=== PATIENT | female | born 1985 | race Caucasian/White ===

== ENCOUNTER 2017-03-07 21:11 | Emergency (ER) | payer MEDICAID, OTHER ==
[~2017-03-07] VITALS: Ht 165.1 cm; Wt 90.9 kg
[~2017-03-07 21:11] MED LIST: LAMO100 PO; PALI6 PO
[2017-03-07 21:47] LABS: BASOPHILS % (AUTO) 0.3 % (0.0-2.0); EOSINOPHILS % (AUTO) 1.5 % (1.0-6.0); HEMATOCRIT 39.2 % (36-46); LYMPHOCYTES # (AUTO) 2.5 K/uL (1.0-4.8); MEAN CORPUSCULAR HEMOGLOBIN 29.5 pg (26.0-34.0); MEAN CORPUSCULAR HGB CONC 33.2 G/dL (31.0-37.0); MEAN CORPUSCULAR VOLUME 89 fL (80-100); MONOCYTES # (AUTO) 1.1 K/uL (0.1-1.0); MONOCYTES % (AUTO) 10.3 % (2.0-9.0); NEUTROPHILS # (AUTO) 6.7 K/uL (1.8-7.7); NEUTROPHILS % (AUTO) 63.9 % (40.0-70.0); PLATELET COUNT (AUTO) 303 K/uL (150-450); RED BLOOD CELL COUNT(AUTO) 4.41 MIL/uL (4.00-5.20); RED CELL DISTRIBUTION WIDTH 13.4 % (11.5-14.5); WHITE BLOOD COUNT (AUTO) 10.5 K/uL (4.5-11.0)
[2017-03-07 21:52] VITALS: BP 138/74
[2017-03-07 21:58] LABS: ANION GAP 9 mmol/L (8-16); CALCIUM, TOTAL 8.8 mg/dL (8.8-10.5); CARBON DIOXIDE 27 mmol/L (22-29); CHLORIDE 100 mmol/L (98-107); GLOMERULAR FILTR. RATE CALC > 60 mL/min (>60); POTASSIUM 3.4 mmol/L (3.5-5.1); SODIUM SERUM 136 mmol/L (136-145); UREA NITROGEN, BLOOD 22 mg/dL (7-18)
[2017-03-07 22:04] LABS: ALANINE AMINOTRANSFERASE 84 U/L (12-78); ALBUMIN 4.2 g/dL (3.4-5.0); ASPARTATE AMINOTRANSFERASE 43 U/L (15-37); BILIRUBIN,TOTAL 0.9 mg/dL (0.1-1.0); TOTAL PROTEIN, SERUM 7.8 g/dL (6.4-8.2)
== END 2017-03-07 22:31 | disposition left against medical advice (07) ==
LOC: EMS 21:13
DX: Z00.8 Encounter for other general examination (principal); R68.84 Jaw pain; Y04.0XXA Assault by unarmed brawl or fight, initial encounter; Y93.89 Activity, other specified; Y92.89 Other specified places as the place of occurrence of the external cause; Y99.8 Other external cause status; Z53.21 Procedure and treatment not carried out due to patient leaving prior to being seen by health care provider

== ENCOUNTER 2017-05-01 18:53 | Emergency (ER) | payer OTHER ==
[~2017-05-01] VITALS: Ht 170.2 cm; Wt 90.9 kg
[2017-05-01] MEDS ORDERED: LORazepam 2 MG/ML VIAL IM ONE (19:30)
[2017-05-01] MEDS ORDERED: DiphenhydrAMINE HCL 50 MG/ML VIAL IM ONE (19:30)
[2017-05-01] MEDS ORDERED: HALOPERIDOL LACTATE 5 MG/ML VIAL IM ONE (19:30)
[2017-05-01 21:43] LABS: BASOPHILS % (AUTO) 0.2 % (0.0-2.0); EOSINOPHILS % (AUTO) 0.3 % (1.0-6.0); HEMATOCRIT 34.2 % (36-46); HEMOGLOBIN 11.6 g/dL (12.0-16.0); LYMPHOCYTES # (AUTO) 3.2 K/uL (1.0-4.8); LYMPHOCYTES % (AUTO) 24.9 % (22.0-44.0); MEAN CORPUSCULAR HEMOGLOBIN 29.4 pg (26.0-34.0); MEAN CORPUSCULAR HGB CONC 33.9 G/dL (31.0-37.0); MEAN CORPUSCULAR VOLUME 87 fL (80-100); MONOCYTES # (AUTO) 1.1 K/uL (0.1-1.0); MONOCYTES % (AUTO) 8.4 % (2.0-9.0); NEUTROPHILS # (AUTO) 8.6 K/uL (1.8-7.7); NEUTROPHILS % (AUTO) 66.2 % (40.0-70.0); PLATELET COUNT (AUTO) 339 K/uL (150-450); RED BLOOD CELL COUNT(AUTO) 3.94 MIL/uL (4.00-5.20); RED CELL DISTRIBUTION WIDTH 13.2 % (11.5-14.5)
[2017-05-01 21:45] LABS: ANION GAP 12 mmol/L (8-16); CALCIUM, TOTAL 8.8 mg/dL (8.8-10.5); CARBON DIOXIDE 25 mmol/L (22-29); CHLORIDE 103 mmol/L (98-107); CREATININE 0.86 mg/dL (0.60-1.30); GLOMERULAR FILTR. RATE CALC > 60 mL/min (>60); POTASSIUM 3.2 mmol/L (3.5-5.1); SODIUM SERUM 140 mmol/L (136-145); UREA NITROGEN, BLOOD 15 mg/dL (7-18)
[2017-05-01] MEDS ORDERED: DIAZEPAM 5 MG/ML 2 ML SYRINGE IM ONE (21:45)
[2017-05-01 21:50] LABS: ALANINE AMINOTRANSFERASE 63 U/L (12-78); ALBUMIN 3.7 g/dL (3.4-5.0); ASPARTATE AMINOTRANSFERASE 32 U/L (15-37); BILIRUBIN,TOTAL 0.6 mg/dL (0.1-1.0); TOTAL PROTEIN, SERUM 7.5 g/dL (6.4-8.2)
[2017-05-01] MEDS ORDERED: POTASSIUM CHLORIDE 10% 40 MEQ/30 ML LIQUID UDCUP PO ONE (23:30)
[2017-05-02 00:43] VITALS: BP 126/71
== END 2017-05-02 00:55 | disposition home or self-care (01) ==
LOC: EMS 18:55
DX: S00.91XA Abrasion of unspecified part of head, initial encounter (principal); S60.512A Abrasion of left hand, initial encounter; F24 Shared psychotic disorder; F15.10 Other stimulant abuse, uncomplicated; F17.200 Nicotine dependence, unspecified, uncomplicated; F31.9 Bipolar disorder, unspecified; F20.9 Schizophrenia, unspecified; W01.0XXA Fall on same level from slipping, tripping and stumbling without subsequent striking against object, initial encounter; Y93.89 Activity, other specified; Y92.89 Other specified places as the place of occurrence of the external cause; Y99.8 Other external cause status
CPT/HCPCS: 36415; 80053; 80307; 85025; 96372; 99291; G0480; J1200; J1630; J1885; J2060

== ENCOUNTER 2017-05-05 00:45 | Emergency (ER) | payer OTHER ==
[~2017-05-05] VITALS: Ht 167.6 cm; Wt 94.0 kg
[2017-05-05 00:49] VITALS: BP 142/82
[2017-05-05] MEDS ORDERED: ARIP300S3 IM (02:55)
== END 2017-05-05 01:22 | disposition left against medical advice (07) ==
LOC: EMS 00:45
DX: Z00.8 Encounter for other general examination (principal); F31.9 Bipolar disorder, unspecified; F20.9 Schizophrenia, unspecified; F19.90 Other psychoactive substance use, unspecified, uncomplicated; F17.210 Nicotine dependence, cigarettes, uncomplicated; Z53.21 Procedure and treatment not carried out due to patient leaving prior to being seen by health care provider

== ENCOUNTER 2017-05-05 01:51 | Emergency (ER) | payer OTHER ==
[~2017-05-05] VITALS: Ht 157.5 cm; Wt 94.1 kg
[2017-05-05] MEDS ORDERED: ARIP300S3 IM (02:55)
[2017-05-05] MEDS ORDERED: LORazepam 2 MG TABLET PO ONE (04:15)
[2017-05-05 04:48] VITALS: BP 119/63
== END 2017-05-05 04:52 | disposition home or self-care (01) ==
LOC: EMS 01:52
DX: F25.9 Schizoaffective disorder, unspecified (principal); F31.9 Bipolar disorder, unspecified; F15.90 Other stimulant use, unspecified, uncomplicated
CPT/HCPCS: 99284

== ENCOUNTER 2017-06-22 07:41 | Inpatient (IN) | payer MEDICAID, OTHER ==
[~2017-06-22] VITALS: Ht 180.3 cm; Wt 93.2 kg
[~2017-06-22 07:41] MED LIST changes: +ARIP300S3 IM; -LAMO100 PO; -PALI6 PO
[2017-06-22 08:30] LABS: BASOPHILS # (AUTO) 0.04 K/uL (0.00-0.20); BASOPHILS % (AUTO) 0.3 % (0.0-2.0); EOSINOPHILS # (AUTO) 0.05 K/uL (0.00-0.70); HEMATOCRIT 37.6 % (36-46); HEMOGLOBIN 12.6 g/dL (12.0-16.0); LYMPHOCYTES # (AUTO) 2.6 K/uL (1.0-4.8); LYMPHOCYTES % (AUTO) 24.1 % (22.0-44.0); MEAN CORPUSCULAR HEMOGLOBIN 28.4 pg (26.0-34.0); MEAN CORPUSCULAR HGB CONC 33.4 G/dL (31.0-37.0); MEAN CORPUSCULAR VOLUME 85 fL (80-100); MONOCYTES # (AUTO) 1.1 K/uL (0.1-1.0); MONOCYTES % (AUTO) 10.1 % (2.0-9.0); NEUTROPHILS # (AUTO) 6.9 K/uL (1.8-7.7); PLATELET COUNT (AUTO) 298 K/uL (150-450); RED BLOOD CELL COUNT(AUTO) 4.43 MIL/uL (4.00-5.20); RED CELL DISTRIBUTION WIDTH 13.2 % (11.5-14.5); WHITE BLOOD COUNT (AUTO) 10.6 K/uL (4.5-11.0)
[2017-06-22 08:48] LABS: ANION GAP 5 mmol/L (8-16); CARBON DIOXIDE 29 mmol/L (22-29); CHLORIDE 102 mmol/L (98-107); CREATININE 0.68 mg/dL (0.60-1.30); GLOMERULAR FILTR. RATE CALC > 60 mL/min (>60); POTASSIUM 4.1 mmol/L (3.5-5.1); SODIUM SERUM 136 mmol/L (136-145); UREA NITROGEN, BLOOD 12 mg/dL (7-18)
[2017-06-22 08:54] LABS: ALANINE AMINOTRANSFERASE 65 U/L (12-78); ALBUMIN 3.9 g/dL (3.4-5.0); ASPARTATE AMINOTRANSFERASE 30 U/L (15-37); BILIRUBIN,TOTAL 0.3 mg/dL (0.1-1.0); TOTAL PROTEIN, SERUM 7.9 g/dL (6.4-8.2)
[2017-06-22] MEDS ORDERED: LORazepam 2 MG/ML VIAL IM ONE ×2 (09:00→12:15)
[2017-06-22] MEDS ORDERED: HALOPERIDOL LACTATE 5 MG/ML VIAL IM ONE (09:00)
[2017-06-22] MEDS ORDERED: DiphenhydrAMINE HCL 50 MG/ML VIAL IM ONE ×2 (09:00→12:15)
[2017-06-22] MEDS ORDERED: HYDROCORTISONE 1% 30 GM OINTMENT TP PRN (12:45)
[2017-06-22 13:18] VITALS: BP 140/91
[2017-06-22 16:34] VITALS: BP 126/78
[2017-06-23] MEDS: NICOTINE 21 MG/24 HOUR PATCH TD SCH (08:20)
[2017-06-23 08:43] VITALS: BP 124/74
[2017-06-23 08:44] LABS: CHOL/HDL RATIO 3.2 (3.9-5.7); THYROID STIMULATING HORMONE 0.94 uIU/mL (0.36-3.74)
[2017-06-23] MEDS ORDERED: ALBUTEROL SULFATE HFA 90 MCG/PUFF 8 GM INHALER IH PRN (09:00)
[2017-06-23] MEDS ORDERED: ONDANSETRON HCL 4 MG TABLET PO PRN (09:00)
[2017-06-23] MEDS ORDERED: CloNIDine HCL 0.1 MG TABLET PO PRN (09:00)
[2017-06-23] MEDS ORDERED: MAGNESIUM HYDROXIDE SUSPENSION 30 ML UDCUP PO PRN (09:00)
[2017-06-23] MEDS ORDERED: PETROLATUM,WHITE 71 GM JELLY TP PRN (09:00)
[2017-06-23] MEDS ORDERED: BENZOCAINE/MENTHOL LOZENGE MM PRN (09:00)
[2017-06-23] MEDS ORDERED: MAG HYDROX/AL HYDROX/SIMETH ES 30 ML SUSPENSION UDCUP PO PRN (09:00)
[2017-06-23] MEDS ORDERED: LOPERAMIDE HCL 2 MG CAPSULE PO PRN (09:00)
[2017-06-23] MEDS ORDERED: BACITRACIN 28.4 GM OINTMENT TP PRN (09:00)
[2017-06-23] MEDS ORDERED: ACETAMINOPHEN 325 MG TABLET PO PRN (09:00)
[2017-06-23] MEDS: LORazepam 2 MG TABLET PO PRN ×2 (09:26→20:13)
[2017-06-23] MEDS: OLANZapine 10 MG TABLET PO SCH ×2 (09:26→20:12)
[2017-06-23] MEDS: ZOLPIDEM TARTRATE 10 MG TABLET PO PRN (20:12)
[2017-06-23] MEDS ORDERED: LITHIUM CARBONATE 300 MG CAPSULE PO SCH (21:00)
[2017-06-24] MEDS: OLANZapine 10 MG TABLET PO SCH ×2 (08:10→20:55)
[2017-06-24] MEDS: NICOTINE 21 MG/24 HOUR PATCH TD SCH (08:11)
[2017-06-24] MEDS: IBUPROFEN 600 MG TABLET PO PRN (08:11)
[2017-06-24] MEDS: LITHIUM CARBONATE 600 MG CAPSULE PO SCH ×2 (14:54→16:42)
[2017-06-24 16:20] VITALS: BP 112/71
[2017-06-24] MEDS: LORazepam 2 MG TABLET PO PRN (16:42)
[2017-06-24] MEDS: ZOLPIDEM TARTRATE 10 MG TABLET PO PRN (20:53)
[2017-06-25 05:03] VITALS: BP 124/70
[2017-06-25] MEDS: IBUPROFEN 600 MG TABLET PO PRN (06:32)
[2017-06-25] MEDS: LORazepam 2 MG TABLET PO PRN ×2 (08:37→16:22)
[2017-06-25] MEDS: OLANZapine 10 MG TABLET PO SCH ×2 (08:38→20:50)
[2017-06-25] MEDS: LITHIUM CARBONATE 600 MG CAPSULE PO SCH ×3 (08:38→16:22)
[2017-06-25] MEDS: NICOTINE 21 MG/24 HOUR PATCH TD SCH (08:38)
[2017-06-25 16:20] VITALS: BP 121/75
[2017-06-25] MEDS: ZOLPIDEM TARTRATE 10 MG TABLET PO PRN (20:50)
[2017-06-26 08:28] VITALS: BP 120/77
[2017-06-26] MEDS: LITHIUM CARBONATE 600 MG CAPSULE PO SCH ×3 (09:37→16:24)
[2017-06-26] MEDS: OLANZapine 10 MG TABLET PO SCH ×2 (09:37→20:20)
[2017-06-26] MEDS: NICOTINE 21 MG/24 HOUR PATCH TD SCH (09:38)
[2017-06-26] MEDS: LORazepam 2 MG TABLET PO PRN ×2 (09:47→16:24)
[2017-06-26 16:23] VITALS: BP 125/79
[2017-06-26] MEDS: IBUPROFEN 600 MG TABLET PO PRN (16:24)
[2017-06-26] MEDS: ZOLPIDEM TARTRATE 10 MG TABLET PO PRN (20:20)
[2017-06-27 07:08] VITALS: BP 127/93
[2017-06-27] MEDS: NICOTINE 21 MG/24 HOUR PATCH TD SCH (09:11)
[2017-06-27] MEDS: OLANZapine 10 MG TABLET PO SCH ×2 (09:11→20:29)
[2017-06-27] MEDS: LITHIUM CARBONATE 600 MG CAPSULE PO SCH ×3 (09:11→16:14)
[2017-06-27] MEDS: LORazepam 2 MG TABLET PO PRN (16:14)
[2017-06-27 16:22] VITALS: BP 119/76
[2017-06-27] MEDS: ZOLPIDEM TARTRATE 10 MG TABLET PO PRN (20:29)
[2017-06-28 07:26] VITALS: BP 124/64
[2017-06-28 08:30] VITALS: BP 118/80
[2017-06-28] MEDS: NICOTINE 21 MG/24 HOUR PATCH TD SCH (09:25)
[2017-06-28] MEDS: LITHIUM CARBONATE 600 MG CAPSULE PO SCH ×3 (09:26→17:07)
[2017-06-28] MEDS: OLANZapine 10 MG TABLET PO SCH ×2 (09:26→20:36)
[2017-06-28] MEDS: LORazepam 2 MG TABLET PO PRN (15:58)
[2017-06-29 06:03] VITALS: BP 113/68
[2017-06-29 08:00] VITALS: BP 112/70
[2017-06-29] MEDS: OLANZapine 10 MG TABLET PO SCH ×2 (08:44→21:44)
[2017-06-29] MEDS: LITHIUM CARBONATE 600 MG CAPSULE PO SCH ×3 (08:44→17:58)
[2017-06-29] MEDS: NICOTINE 21 MG/24 HOUR PATCH TD SCH (08:45)
[2017-06-29] MEDS: LORazepam 2 MG TABLET PO PRN ×2 (11:37→17:58)
[2017-06-29 18:16] VITALS: BP 117/72
[2017-06-29] MEDS: ZOLPIDEM TARTRATE 10 MG TABLET PO PRN (21:44)
[2017-06-30 04:17] VITALS: BP 121/76
[2017-06-30 08:25] VITALS: BP 118/69
[2017-06-30] MEDS: NICOTINE 21 MG/24 HOUR PATCH TD SCH (09:26)
[2017-06-30] MEDS: OLANZapine 10 MG TABLET PO SCH ×2 (09:26→20:09)
[2017-06-30] MEDS: LITHIUM CARBONATE 600 MG CAPSULE PO SCH ×3 (09:26→16:32)
[2017-06-30] MEDS: IBUPROFEN 600 MG TABLET PO PRN (10:28)
[2017-06-30] MEDS ORDERED: INFLUENZA VIRUS VACCINE QVS 2017-18 (3YR+)/PF 60 MCG/0.5 ML SYRINGE IM ONE (11:00)
[2017-06-30] MEDS: LORazepam 2 MG TABLET PO PRN ×2 (11:01→16:33)
[2017-06-30 16:00] VITALS: BP 116/70
[2017-06-30] MEDS: ZOLPIDEM TARTRATE 10 MG TABLET PO PRN (20:09)
[2017-07-01 06:35] VITALS: BP 118/75
[2017-07-01 08:23] VITALS: BP 118/75
[2017-07-01] MEDS: OLANZapine 10 MG TABLET PO SCH ×2 (09:12→20:11)
[2017-07-01] MEDS: LITHIUM CARBONATE 600 MG CAPSULE PO SCH ×3 (09:12→16:17)
[2017-07-01] MEDS: NICOTINE 21 MG/24 HOUR PATCH TD SCH (09:13)
[2017-07-01] MEDS ORDERED: PALIPERIDONE PALMITATE 156 MG/ML SYRINGE IM SCH (12:00)
[2017-07-01 16:06] VITALS: BP 124/79
[2017-07-01] MEDS: LORazepam 2 MG TABLET PO PRN (16:17)
[2017-07-01] MEDS: ZOLPIDEM TARTRATE 10 MG TABLET PO PRN (20:10)
[2017-07-02 08:20] VITALS: BP 116/68
[2017-07-02] MEDS: OLANZapine 10 MG TABLET PO SCH ×2 (09:00→20:14)
[2017-07-02] MEDS: LITHIUM CARBONATE 600 MG CAPSULE PO SCH ×3 (09:01→16:22)
[2017-07-02] MEDS: NICOTINE 21 MG/24 HOUR PATCH TD SCH (09:02)
[2017-07-02 11:40] VITALS: BP 120/72
[2017-07-02] MEDS: IBUPROFEN 600 MG TABLET PO PRN (11:40)
[2017-07-02 16:13] VITALS: BP 118/72
[2017-07-02] MEDS: LORazepam 2 MG TABLET PO PRN ×2 (16:23→20:40)
[2017-07-02] MEDS: ZOLPIDEM TARTRATE 10 MG TABLET PO PRN (20:40)
[2017-07-03 05:21] VITALS: BP 121/76
[2017-07-03 08:27] VITALS: BP 118/61
[2017-07-03] MEDS: NICOTINE 21 MG/24 HOUR PATCH TD SCH (09:41)
[2017-07-03] MEDS: OLANZapine 10 MG TABLET PO SCH ×2 (09:41→20:36)
[2017-07-03] MEDS: LITHIUM CARBONATE 600 MG CAPSULE PO SCH ×3 (09:41→16:16)
[2017-07-03] MEDS: LORazepam 2 MG TABLET PO PRN (16:16)
[2017-07-03 16:20] VITALS: BP 119/77
[2017-07-03] MEDS: IBUPROFEN 600 MG TABLET PO PRN (16:20)
[2017-07-03] MEDS: ZOLPIDEM TARTRATE 10 MG TABLET PO PRN (20:36)
[2017-07-04 06:30] VITALS: BP 101/66
[2017-07-04] MEDS: OLANZapine 10 MG TABLET PO SCH ×2 (08:56→20:37)
[2017-07-04] MEDS: LITHIUM CARBONATE 600 MG CAPSULE PO SCH ×3 (08:56→16:18)
[2017-07-04] MEDS: NICOTINE 21 MG/24 HOUR PATCH TD SCH (08:56)
[2017-07-04 16:18] VITALS: BP 109/79
[2017-07-04] MEDS: LORazepam 2 MG TABLET PO PRN (16:18)
[2017-07-04] MEDS: ZOLPIDEM TARTRATE 10 MG TABLET PO PRN (21:09)
[2017-07-05 00:37] VITALS: BP 132/61
[2017-07-05] MEDS: LORazepam 2 MG TABLET PO PRN ×2 (00:39→16:19)
[2017-07-05 09:04] VITALS: BP 119/79
[2017-07-05] MEDS: NICOTINE 21 MG/24 HOUR PATCH TD SCH (09:19)
[2017-07-05] MEDS: LITHIUM CARBONATE 600 MG CAPSULE PO SCH ×3 (09:19→16:19)
[2017-07-05] MEDS: OLANZapine 10 MG TABLET PO SCH ×2 (09:19→20:16)
[2017-07-05] MEDS: IBUPROFEN 600 MG TABLET PO PRN (12:14)
[2017-07-05 16:09] VITALS: BP 115/77
[2017-07-05] MEDS: ZOLPIDEM TARTRATE 10 MG TABLET PO PRN (21:21)
[2017-07-06 06:03] VITALS: BP 129/83
[2017-07-06 08:00] VITALS: BP 125/70
[2017-07-06] MEDS: LITHIUM CARBONATE 600 MG CAPSULE PO SCH (08:28)
[2017-07-06] MEDS: OLANZapine 10 MG TABLET PO SCH (08:28)
[2017-07-06] MEDS: NICOTINE 21 MG/24 HOUR PATCH TD SCH (09:00)
[2017-07-06] MEDS ORDERED: LITH600 PO (11:42)
[2017-07-06] MEDS ORDERED: OLAN10TA3 PO (11:42)
[2017-07-06] MEDS ORDERED: PALI156D IM (11:42)
== END 2017-07-06 13:30 | disposition home or self-care (01) | DRG 750 ==
LOC: EEVIPCON 07:42 → EMS 07:42 → B3A 09:54
PROVIDERS: ADMIT Psychiatry & Neurology Child & Adolescent Psychiatry; ATTEND Psychiatry & Neurology Child & Adolescent Psychiatry
DX: F25.0 Schizoaffective disorder, bipolar type (principal); Z59.0 Homelessness; F17.200 Nicotine dependence, unspecified, uncomplicated; F12.90 Cannabis use, unspecified, uncomplicated; F15.90 Other stimulant use, unspecified, uncomplicated; J45.909 Unspecified asthma, uncomplicated; G47.00 Insomnia, unspecified; L30.9 Dermatitis, unspecified; M79.632 Pain in left forearm; M25.532 Pain in left wrist; M25.512 Pain in left shoulder; Z88.8 Allergy status to other drugs, medicaments and biological substances; Z71.51 Drug abuse counseling and surveillance of drug abuser; W57.XXXA Bitten or stung by nonvenomous insect and other nonvenomous arthropods, initial encounter
CPT/HCPCS: 80307; 83036; 84439; 84443; 96372; 99285; G0480; J1200; J1630; J2060; J3230